=== PATIENT | male | born 2000 | race Two or more races ===

== ENCOUNTER 2024-12-24 13:57 | Emergency (ER) | payer MEDICAID, SELFPAY ==
[2024-12-24 14:08] VITALS: BP 126/84; PULSE 81; RESP 20; TEMP 37.3; O2SAT 97
--- NOTE | 2024-12-24 14:35 | PD.EDRME ---
Rapid Medical Screening Exam RME Arrival date/time: 12/24/24 13:57 24-year-old male with no known medical history presents to the emergency room with a chief complaint of a sore throat, difficulty swallowing and difficulty opening his mouth x 3 days I have greeted and performed a focused initial assessment of this patient. A comprehensive ED assessment and evaluation of the patient, analysis of all test results, and completion of the medical decision making process will be conducted by additional ED providers. Chief Complaint: Dental/Oral/Throat Time Seen by Provider: 12/24/24 13:59 Vital signs: Vital Signs Temperature 99.1 F 12/24/24 14:08 Pulse Rate 81 12/24/24 14:08 Respiratory Rate 20 12/24/24 14:08 Blood Pressure 126/84 12/24/24 14:08 Pulse Oximetry (%) 97 12/24/24 14:08 Oxygen Delivery Method Room Air 12/24/24 14:08 Vital signs reviewed by provider: Yes
[2024-12-24 14:56] LABS: Strep A Rapid Negative (Negative)
[2024-12-24 15:05] LABS: Basophils # (Auto) 0.0 Thou/mm3 (0.0-0.2); Basophils % (Auto) 0 % (0-2.5); Eosinophils # (Auto) 0.1 Thou/mm3 (0.0-0.5); Eosinophils % (Auto) 1 % (0-10); Hematocrit 45.3 % (41.0-53.0); Hemoglobin 15.8 g/dL (13.5-16.0); Immature Granulocytes Auto 0.05 Thou/mm3 (0.00-0.00); Lymphocytes # (Auto) 1.4 Thou/mm3 (1.0-4.8); Lymphocytes % (Auto) 10 % (10-50); Mean Corpuscular HGB Conc 34.9 g/dl (31.0-37.0); Mean Corpuscular Hemoglobin 30.3 pg (25.0-35.0); Mean Corpuscular Volume 87 fL (80-100); Monocytes # (Auto) 1.6 Thou/mm3 (0.0-0.8); Monocytes % (Auto) 11 % (0-12); Neutrophils # (Auto) 11.2 Thou/mm3 (1.8-7.7); Neutrophils % (Auto) 78 % (37-80); Nucleated Red Blood Cell # 0.00 Thou/mm3 (0.00-0.00); Nucleated Red Blood Cell % 0 /100 WBC (0); Platelet Count 191 Thou/mm3 (140-440); RDW Standard Deviation 38.6 fL (35.1-43.9); Red Blood Count 5.21 Miln/mm3 (4.50-5.90); White Blood Count 14.4 Thou/mm3 (3.8-10.6)
[2024-12-24] MEDS: DEXAMETHASONE SOD PHOS INJ 10 MG/ML VIAL PO (15:07)
[2024-12-24 15:23] LABS: Alanine Aminotransferase 22 U/L (10-49); Albumin, Serum 5.2 gm/dL (3.5-5.0); Albumin/Globulin Ratio 1.7 (1.2-2.2); Alkaline Phosphatase 87 U/L (46-116); Anion Gap 11 (7-16); Aspartate Amino Transferase 21 U/L (0-34); BUN/Creatinine Ratio 13 Ratio (12-20); Bilirubin,Total 1.0 mg/dL (0.3-1.2); Blood Urea Nitrogen 10 mg/dL (9-23); Calcium 10.4 mg/dL (8.3-10.6); Calcium (Corrected) 10.4 mg/dL (8.5-10.1); Carbon Dioxide 26.9 mMol/L (20.0-31.0); Chloride 104 mMol/L (98-107); Creatinine (Component) 0.8 mg/dL (0.6-1.3); Globulin 3.0 gm/dL (2.3-3.5); Glucose 98 mg/dL (74-106); Osmolality,Calculated 282 (275-295); Potassium 3.5 mMol/L (3.4-5.1); Sodium 142 mMol/L (136-145); Total Protein 8.2 gm/dL (5.7-8.2); eGFR > 60 See Note
--- NOTE | 2024-12-24 15:38 | XR_ITS ---
Examination: CT soft tissue neck, with intravenous contrast. 2-D coronal reconstructions. 2-D sagittal reconstructions. Date and time of exam :December 24, 2024, 1543 hours INDICATIONS: Left-sided neck pain and difficulty swallowing 3 days. CTDI: vol (mGy):10.1 DLP: (mGycm):298 Technique: 1.25 mm axial sections of the neck of the obtained. Coronal and sagittal reconstructions have been obtained. Intravenous contrast administered 50 cc Isovue-370. Low dose protocols were performed. One or more of the following dose reduction techniques were used; automated exposure control, adjustment of the mA and/or KV according to patient size, use of iterative reconstruction technique. Findings: 27 x 21 x 28 mm left tonsillar abscess which is severely impinging upon the oropharyngeal airway, axial image 36, sagittal image 27 The epiglottis is not thickened The larynx appears normal Thyroid lobes exhibit symmetry Reactive cervical lymph nodes bilaterally in the carotid triangle region Lung apices clear IMPRESSION: Large left tonsillar abscess severely impinging upon the oropharyngeal airway
--- NOTE | 2024-12-24 15:41 | EDNOTE_ITS ---
ED General RME/HPI General Chief complaint: Dental/Oral/Throat Stated complaint: SORE THROAT, SWOLLEN TONSIL Time Seen by Provider: 12/24/24 13:59 Arrival date/time: 12/24/24 13:57 RME / HPI RME / HPI narrative: 12/24/24 13:57 24-year-old male with no known medical history presents to the emergency room with a chief complaint of a sore throat, difficulty swallowing and difficulty opening his mouth x 3 days I have greeted and performed a focused initial assessment of this patient. A comprehensive ED assessment and evaluation of the patient, analysis of all test results, and completion of the medical decision making process will be conducted by additional ED providers. 1530h: 24-year-old male here for evaluation of sore throat that has been ongoing for the past 3 days approximately. Has had a low-grade fever at home the first few days but denies any fever today. No nausea, vomiting, cough, other acute symptoms at this time. Notes that he cannot open his mouth wide or chew very well due to the pain. Also having a muffled sound to his voice recently. No past medical history, does not take any medications, no allergies to anything. Related Data Allergies Allergy/AdvReac Type Severity Reaction Status Date / Time No Known Allergies Allergy Verified 12/24/24 14:00 Review of Systems Review of Systems Systems Reviewed: All systems reviewed, normal except as documented Past Medical History Social History SMOKING STATUS: Never smoker Past Medical History Comments PMH COMMENT: No reported PMH ED Exam Narrative Physical exam: Constitutional: Awake, alert, nontoxic, uncomfortable. HEENT: Normocephalic, atraumatic, extraocular movements intact. There is erythema and swelling noted to left side hard/soft palate with significant swelling noted to left peritonsillar/tonsillar region with purple discoloration/bruising noted to left tonsil and slight exudate. Neck: Supple, + cervical LAD left, pain to palpation left submandibular region. CV: Regular rate and rhythm, no murmurs/rubs/gallops Lungs: Clear to auscultation BL, no respiratory distress. Skin: Warm, dry, intact Course Course Course Narrative: 1540h: 24-year-old male coming in for evaluation of left-sided peritonsill ar/tonsillar pain and swelling ongoing for the last few days. Tactile temps at home recently. Concern for peritonsillar abscess. Labs and imaging ordered with initial labs showing leukocytosis. IV antibiotic dose ordered. Will likely require transfer once CT is completed. 1635h: I spoke with [facility] transfer center nurse. State they will contact their [place] site and present the case to ENT team. 1650h: I spoke with transfer nurse at [facility]. State they will present the case to their ENT team. 1723h: I spoke with [facility] transfer nurse. State they will present the case to their ENT team. 1800h: Patient remains vitally stable, maintaining airway, feeling a bit better at present compared with arrival. Still awaiting acceptance. Believe does merit transfer for ENT eval given size of abscess. Patient signed out to Dr. Stevenson pending acceptance for transfer for ENT. Quality Measures none Orders Category Date Time Status CT Screening NOW Care 12/24/24 14:[address] Screening NOW Care 12/24/24 15:38 Active Referral - Clock Repair Technician Stat Cons 12/24/24 16:[address] soft tissue neck w con Stat Exams 12/24/24 15:38 Completed CBC Stat Lab 12/24/24 14:40 Completed CMP [Comprehensive Metabolic Panel] Stat Lab 12/24/24 14:40 Completed CRP [C-Reactive Protein] Stat Lab 12/24/24 16:14 Completed Lactate (Lactic Acid) Stat Lab 12/24/24 16:14 Completed Strep A Rapid Stat Lab 12/24/24 14:28 Completed Ampicillin/Sulbac Inj [Unasyn Inj] 3 gm Med 12/24/24 15:37 Discontinued Sodium Chloride 0.9% (Pop) [NS 0.9% mini bag] 100 ml IV X1 Dexamethasone Inj [Decadron Inj] Med 12/24/24 14:19 Discontinued 10 mg PO X1 ONE Ketorolac Inj [Toradol Inj] Med 12/24/24 15:37 Discontinued 30 mg IVP X1 ONE Vital Signs Vital signs: Vital Signs Temperature 99.1 F 12/24/24 14:08 Pulse Rate 81 12/24/24 14:08 Respiratory Rate 20 12/24/24 14:08 Blood Pressure 126/84 12/24/24 14:08 Pulse Oximetry (%) 97 12/24/24 14:08 Oxygen Delivery Method Room Air 12/24/24 14:08 Pulse ox is 97% on room air which is adequate. Discharge Plan Prescriptions/Referrals Referrals: No Primary/Family,Physician [Primary Care Provider] - In 1 week Problem List Clinical Impression: Peritonsillar abscess Patient/Caregiver Discharge Instructions Print Language: Icelandic MDM Clinical Information Provided by: patient Medical Records reviewed [facility] Meds/Rx considered, not ordered None Labs/Rad/Tests considered, not ordered None Chronic Illness/Social Conditions which may negatively complicate care or outcome(s)-explain: None or not applicable EKG EKG not done Labs Labs: see narrative above Imaging Imaging Interpretation(s): Ordering Physician: Carmen Jhaveri MD Date of Service: 12/24/24 Procedure(s): CT soft tissue neck w con Accession Number(s): [id number] cc: Akin Mehta MD; Carmen Jhaveri MD; NO PRIMARY/FAMILY,PHYSICIAN~ Examination: CT soft tissue neck, with intravenous contrast. 2-D coronal reconstructions. 2-D sagittal reconstructions. Date and time of exam :December 24, 2024, 1543 hours INDICATIONS: Left-sided neck pain and difficulty swallowing 3 days. CTDI: vol (mGy):10.1 DLP: (mGycm):298 Technique: 1.25 mm axial sections of the neck of the obtained. Coronal and sagittal reconstructions have been obtained. Intravenous contrast administered 50 cc Isovue-370. Low dose protocols were performed. One or more of the following dose reduction techniques were used; automated exposure control, adjustment of the mA and/or KV according to patient size, use of iterative reconstruction technique. Findings: 27 x 21 x 28 mm left tonsillar abscess which is severely impinging upon the oropharyngeal airway, axial image 36, sagittal image 27 The epiglottis is not thickened The larynx appears normal Thyroid lobes exhibit symmetry Reactive cervical lymph nodes bilaterally in the carotid triangle region Lung apices clear IMPRESSION: Large left tonsillar abscess severely impinging upon the oropharyngeal airway Dictated By: Akin Mehta MD Signed By: <Electronically signed by Akin Mehta MD in [place]> 12/24/24 5425 Medication Administration(s) Medication Administration History Discontinued Medications Dexamethasone Sodium Phosphate (Dexamethasone Sod Phos Inj 10 Mg/Ml Vial) 10 mg PO X1 ONE Stop: 12/24/24 14:20 Last Admin: 12/24/24 15:07 Dose: 10 mg Documented By: Comments: provider ok'd to give PO Ampicillin Sodium/Sulbactam (Sodium 3 gm/ Sodium Chloride) 100 mls @ 200 mls/hr IV X1 ONE Stop: 12/24/24 15:38 Last Infusion: 12/24/24 16:36 Dose: Infused Documented By: Admin: 12/24/24 16:06 Dose: 200 mls/hr Documented By: EF Ketorolac Tromethamine (Ketorolac Inj 30 Mg/Ml Vial) 30 mg IVP X1 ONE Stop: 12/24/24 15:38 Last Admin: 12/24/24 16:07 Dose: 30 mg Documented By: EF See above Diagnosis Diagnoses ruled out and/or further discussions: Peritonsillar abscess
[2024-12-24] MEDS: AMPICILLIN/SULBAC INJ 3 GM in SODIUM CHLORIDE 0.9% (POP) 100 ML IV (16:06)
[2024-12-24] MEDS: KETOROLAC INJ 30 MG/ML VIAL IVP (16:07)
[2024-12-24 16:16] VITALS: BP 128/84; PULSE 93; RESP 20; TEMP 37.2; O2SAT 97
[2024-12-24 16:27] LABS: Lactate (Lactic Acid) 1.2 mMol/L (0.4-2.0)
--- NOTE | 2024-12-24 16:29 | PC.CC ---
Addendum entered by Marlin Manning RN 12/24/24 19:00: informed Tamia w/ [facility] and Alexandra w/ that transfer request has been canceled. Addendum entered by Marlin Manning RN 12/24/24 18:23: 1815: Alexandra called back and stated Dr. Moise (ENT) stated the ER MD needs to attempt to drain the abscess. Called and spoke to Dr. Stevenson (ED) and informed him of the 2 different ENT recs, he stated to cancel transfer request. He stated he will attempt to drain the abscess. Addendum entered by Marlin Manning RN 12/24/24 18:11: 1805: peer to peer between Dr. Wilkins ( ED) and Dr. Jhaveri. Dr. Wilkins stated he will reach out his ENT MD to consult. Alexandra with stated she will call us back with determination once consult is completed. Addendum entered by Marlin Manning RN 12/24/24 17:43: 1736: Jake called back and stated Dr Louise SEXTON declined patient. He stated a peritonsillar abscess can be managed by the ER MD. 1723: Jake w/ [facility] TC spoke to Dr. Jhaveri. Addendum entered by Marlin Manning RN 12/24/24 16:51: 1646: initiated transfer request with [facility] TC. Tamia spoke to Dr. Jhaveri. Tamia will reach out to ENT and call back Addendum entered by Marlin Manning RN 12/24/24 16:40: 1638: called [facility], left message to return my call. Original Note: 1634: Connected TC Alexandra w/ Dr Jhaveri. Alexandra will continue to process transfer request. 1631: transfer initiated with . 1627: sent clinicals to , [facility], [facility]. Imaging sent to [facility] and . 1626: called , put on hold 1625: Called [facility] - received message 1620: received order from Dr. Jhaveri for transfer for ENT for peritonsillar abscess for drainage.
[2024-12-24 16:48] LABS: C-Reactive Protein > 10.0 mg/dL (0.0-0.9)
[2024-12-24 18:12] VITALS: BP 139/72; PULSE 87; RESP 17; TEMP 36.9; O2SAT 97
[2024-12-24] MEDS: MORPHINE SULF INJ 4 MG/ML VIAL 2 MG IVP (18:58)
[2024-12-24] MEDS: SODIUM CHLORIDE 0.9% 1000 ML 1,000 ML 999 ML IV ×3 (18:58→22:25)
[2024-12-24] MEDS: ONDANSETRON INJ 2 MG/ML INJ 2 ML 4 MG IVP (18:58)
[2024-12-24] MEDS: cefTRIAXone/D5w 1gm IV premix 1 GM/50 ML BAG IV (18:59)
[2024-12-24] MEDS: LIDOCAINE 1% W/EPI 1:100K 20 ML VIAL INFL (20:17)
[2024-12-24] MEDS: MIDAZOLAM INJ 1 MG/ML VIAL 2 ML 2 MG IVP (20:18)
[2024-12-24] MEDS: MORPHINE SULF INJ 4 MG/ML VIAL IVP (20:25)
--- NOTE | 2024-12-24 20:25 | PC.NURSE ---
per diagoustin pull 4mg morphine now
--- NOTE | 2024-12-24 20:52 | PD.EDADDENDU ---
Emergency Room Addendum Addendum Narrative: 1800: Care assumed from Dr. Jhaveri (emergency physician). Past medical, surgical, social and family history reviewed. Vitals and home medications reviewed. Results and treatment plan discussed. I will assume the care of the patient at this time and will follow the patient, pending peritonsillar abscess I&D. The following addendum documentation note is intended to reflect any pending information, findings, or radiology results not included in the patient?s initial chart by the previous shift scribe. ENT procedure performed. Patient was placed on environmental monitoring technician, IV established and received incremental doses of Versed and Morphine without adequate analgesia and sedation. 5 cc of Lidocaine with Epi given, using 11 gauge blade several punctures were made with return of some purulent drainage. Patient tolerated procedure well without complication. Observed for several hours, and hydrated, reports significant subjective improvement and now reports significantly improved swallowing. Patient will be discharged after IV completion of IV fluids, close F/U with ENT recommended, precautionary instructions issued. Patient will be placed on Clindamycin, Advil, Prelone, and Tylenol with codeine. Date of procedure: 12/24/24 Pre-op diagnosis: Peritonsillar abscess Consent obtained: verbal and written consent Time out performed: Yes Anesthesia: Lidocaine 1 % and with epinephrine Volume of lidocaine (mL): 5 Technique: incision Needle size (gauge): 11 Results: purulent material Packing applied: No Complications: none Patient tolerance: Well Procedure performed by: Nikolas Stevenson Air Intercept Controller: Emerson Quiroz Condition: Stable Disposition: same day
[2024-12-24 23:03] VITALS: BP 116/74; PULSE 104; RESP 18; O2SAT 99
== END 2024-12-24 23:31 | disposition home or self-care (01) ==
PROVIDERS: Family Medicine; Nurse Practitioner Family; Emergency Provider Emergency Medicine
DX: R59.0 Localized enlarged lymph nodes (principal); J36 Peritonsillar abscess
CPT/HCPCS: 36415; 70491; 80053; 83605; 85025; 86140; 87651; 96361; 96365; 96375; 96376; 99284; A4649; J0295; J0696; J1100; J1885; J2250; J2270; J2405; J3490; J7030; Q9967